=== PATIENT | male | born 1965 | race African-American/Black ===

== ENCOUNTER 2017-12-02 04:36 | Observation (INO) ==
[2017-12-02] MEDS ORDERED: MORPHINE 4 MG/1 ML VIAL IV STA (05:07)
[2017-12-02] MEDS ORDERED: SODIUM CHLORIDE 0.9% 1,000 ML IV STA (05:07)
[2017-12-02] MEDS ORDERED: ONDANSETRON 4 MG/2 ML VIAL IV STA (05:07)
[2017-12-02] MEDS ORDERED: ONDANSETRON 4 MG/2 ML VIAL ONE (05:14)
[2017-12-02] MEDS ORDERED: MORPHINE 10 MG/1 ML VIAL ONE (05:15)
[2017-12-02 05:27] LABS: Basophils % 0.2 % (0.0-0.8); Eosinophils # 0.1 10*3/uL (0.0-0.87); Eosinophils % 0.5 % (0.00-10.9); Hematocrit 31.8 VOL% (42.0-52.0); Hemoglobin 10.5 GM/DL (14.0-18.0); Immature Granulocytes % 0.9 %; Immature Granulocytes Absolute 0.11 #; Lymphocytes # 1.8 10*3/uL (1.4-4.0); Mean Corpuscular Hemoglobin 30 PG (27-34); Mean Corpuscular Volume 89.6 FL (87-102); Mean Platelet Volume 10.2 FL (9.6-12.0); Monocytes # 1.1 10*3/uL (0.11-0.8); Monocytes % 8.2 % (1.7-12.7); Neutrophils # 9.8 10*3/uL (1.4-7.4); Neutrophils % 76.2 % (38.7-73.9); Platelet Count 273 T/CUMM (130-400); Red Blood Count 3.55 MC/CUMM (3.8-5.5); Red Cell Distribution Width 13.5 % (9.3-17.3); White Blood Count 12.9 T/CUMM (4-12)
[2017-12-02 05:47] LABS: Albumin 3.3 G/DL (3.4-5.0); Bilirubin,Total 0.7 MG/DL (0.2-1.0); Calcium 9.1 MG/DL (8.5-10.1); Osmolality,Calculated 282.4 MOS/KG (273-304); Potassium 4.1 MMOL/L (3.5-5.1)
[2017-12-02] MEDS ORDERED: HYDROmorphone 2 MG/1 ML VIAL IV STA (05:49)
[2017-12-02] MEDS ORDERED: ONDANSETRON 4 MG/2 ML VIAL IV PRN (05:49)
[2017-12-02] MEDS ORDERED: HYDROmorphone 2 MG/1 ML VIAL ONE (05:57)
[2017-12-02 05:59] LABS: Lactic Acid 1.8 MMOL/L (0.4-2.0)
[2017-12-02] MEDS ORDERED: LABETALOL 100 MG/20 ML VIAL IV STA (06:24)
[2017-12-02] MEDS ORDERED: LABETALOL 20 MG/4 ML SYRINGE IV ONE (06:25)
[2017-12-02] MEDS: DEXTROSE 5% LACTATED RINGERS 1,000 ML IV SCH ×3 (07:05→21:26)
[2017-12-02] MEDS ORDERED: PANTOPRAZOLE 40 MG TABLET PO ONE (08:52)
[2017-12-02] MEDS: PANTOPRAZOLE 40 MG TABLET PO SCH (09:04)
[2017-12-02] MEDS ORDERED: VANCOMYCIN INJ 2,250 MG in SODIUM CHLORIDE 0.9% 500 ML IV ONE (10:30)
[2017-12-02] MEDS: HYDROmorphone 2 MG/1 ML VIAL IV PRN ×2 (12:00→21:26)
[2017-12-02] MEDS ORDERED: SUGAMMADEX 200 MG/2 ML VIAL IV ONE (13:19)
[2017-12-02] MEDS ORDERED: MORPHINE 4 MG/1 ML VIAL IV PRN (13:31)
[2017-12-02] MEDS ORDERED: PROPOFOL 200 MG/20 ML VIAL IV ONE (13:59)
[2017-12-02] MEDS ORDERED: SEVOFLURANE 1 UNIT/15 MINUTE INH ONE (13:59)
[2017-12-02] MEDS ORDERED: fentaNYL 100 MCG/2 ML VIAL ONE (13:59)
[2017-12-02] MEDS ORDERED: ROCURONIUM 100 MG/10 ML VIAL IV ONE (14:00)
[2017-12-02] MEDS ORDERED: SUCCINYLCHOLINE 200 MG/10 ML VIAL ONE ×2 (14:00)
[2017-12-02] MEDS ORDERED: ePHEDrine 50 MG/ML AMP ONE (14:00)
[2017-12-02 16:32] LABS: Hematocrit 27.2 VOL% (42.0-52.0); Hemoglobin 8.6 GM/DL (14.0-18.0)
[2017-12-02 22:01] LABS: Hemoglobin 8.2 GM/DL (14.0-18.0)
[2017-12-03 06:26] LABS: Hematocrit 24.3 VOL% (42.0-52.0); Hemoglobin 7.7 GM/DL (14.0-18.0)
[2017-12-03] MEDS: PANTOPRAZOLE 40 MG TABLET PO SCH (09:08)
[2017-12-03 12:38] LABS: Hemoglobin 8.2 GM/DL (14.0-18.0)
[2017-12-03 12:46] VITALS: BP 120/70
== END 2017-12-03 15:07 | disposition home or self-care (01) ==
LOC: N.ED 04:36 → N.EDINP 05:49 → INTOOBSV 05:49 → N.3E 08:45
PROVIDERS: ADMIT Surgery; ATTEND Surgery

== ENCOUNTER 2020-06-06 11:14 | Observation (INO) ==
[2020-06-06] MEDS ORDERED: SODIUM CHLORIDE 0.9% 1,000 ML IV STA (12:25)
[2020-06-06 13:03] LABS: Basophils % 0.3 % (0.0-0.8); Eosinophils # 0.1 10*3/uL (0.0-0.87); Eosinophils % 1.8 % (0.00-10.9); Hematocrit 30.8 VOL% (42.0-52.0); Hemoglobin 10.1 GM/DL (14.0-18.0); Immature Granulocytes % 0.6 %; Immature Granulocytes Absolute 0.04 #; Lymphocytes # 1.7 10*3/uL (1.4-4.0); Lymphocytes % 25.6 % (21.2-54.2); Mean Corpuscular HGB Conc 32.8 GM/DL (32-36); Mean Corpuscular Volume 90.3 FL (87-102); Mean Platelet Volume 11.1 FL (9.6-12.0); Monocytes % 11.2 % (1.7-12.7); Neutrophils % 60.5 % (38.7-73.9); Platelet Count 143 T/CUMM (130-400); Red Blood Count 3.41 MC/CUMM (3.8-5.5); Red Cell Distribution Width 14.6 % (9.3-17.3); White Blood Count 6.8 T/CUMM (4-12)
[2020-06-06 13:26] LABS: Albumin 3.2 G/DL (3.4-5.0); Bilirubin,Total 0.8 MG/DL (0.2-1.0); Calcium 9.5 MG/DL (8.5-10.1); Osmolality,Calculated 290.8 MOS/KG (273-304); Total Protein 6.6 G/DL (6.4-8.3)
[2020-06-06] MEDS ORDERED: ACETAMINOPHEN 325 MG TABLET PO PRN (14:20)
[2020-06-06] MEDS ORDERED: ONDANSETRON 4 MG/2 ML VIAL IV PRN (14:20)
[2020-06-06] MEDS ORDERED: DEXTROSE 50% 25 GM/50 ML VIAL IV PRN (14:20)
[2020-06-06] MEDS ORDERED: MORPHINE 4 MG/1 ML VIAL IV PRN (14:20)
[2020-06-06] MEDS ORDERED: GLUCAGON 1 MG VIAL IM PRN (14:20)
[2020-06-06 14:33] LABS: Ovalocytes Few
[2020-06-06 14:34] LABS: Platelet Estimate Adequate; Polychromasia Slight
[2020-06-06] MEDS: INSULIN REGULAR 100 UNIT/ML SUBCUT SCH ×2 (17:25→22:03)
[2020-06-06] MEDS: SODIUM CHLORIDE 0.9% 1,000 ML IV SCH (17:27)
[2020-06-06 18:06] LABS: Hematocrit 29.6 VOL% (42.0-52.0); Hemoglobin 9.8 GM/DL (14.0-18.0)
[2020-06-06] MEDS ORDERED: POLYETHYLENE GLYCOL POWDER 255 GM BOTTLE PO ONE (20:10)
[2020-06-06] MEDS: BISACODYL 5 MG TABLET PO SCH (20:47)
[2020-06-07 00:35] LABS: Hematocrit 28.6 VOL% (42.0-52.0); Hemoglobin 9.4 GM/DL (14.0-18.0)
[2020-06-07 00:57] LABS: Risk Ratio 2.25; VLDL CHOLESTEROL 19.6 MG/DL
[2020-06-07] MEDS: MAGNESIUM CITRATE 300 ML BOTTLE PO ONE ×2 (01:02→03:34)
[2020-06-07] MEDS: BISACODYL 5 MG TABLET PO SCH ×2 (03:32→11:33)
[2020-06-07] MEDS: SODIUM CHLORIDE 0.9% 1,000 ML IV SCH ×3 (03:44→16:21)
[2020-06-07] MEDS ORDERED: LACTATED RINGERS 1,000 ML IV SCH (07:00)
[2020-06-07] MEDS: INSULIN REGULAR 100 UNIT/ML SUBCUT SCH ×4 (07:10→22:12)
[2020-06-07] MEDS ORDERED: propofoL 200 MG/20 ML VIAL IV ONE (09:00)
[2020-06-07] MEDS ORDERED: LIDOCAINE 2% 5 ML VIAL ONE (09:00)
[2020-06-07 10:20] LABS: Hematocrit 29.7 VOL% (42.0-52.0); Hemoglobin 9.7 GM/DL (14.0-18.0)
[2020-06-07] MEDS ORDERED: EPINEPHrine 1 MG/ML VIAL ONE (12:46)
[2020-06-07 16:22] LABS: Hematocrit 31.6 VOL% (42.0-52.0); Hemoglobin 10.5 GM/DL (14.0-18.0)
[2020-06-08 01:12] LABS: Hematocrit 28.3 VOL% (42.0-52.0); Hemoglobin 9.4 GM/DL (14.0-18.0)
[2020-06-08 05:24] LABS: Hematocrit 29.4 VOL% (42.0-52.0); Hemoglobin 9.8 GM/DL (14.0-18.0)
[2020-06-08 05:26] LABS: Basophils % 0.3 % (0.0-0.8); Eosinophils # 0.1 10*3/uL (0.0-0.87); Eosinophils % 2.3 % (0.00-10.9); Hematocrit 29.3 VOL% (42.0-52.0); Hemoglobin 9.6 GM/DL (14.0-18.0); Immature Granulocytes % 0.5 %; Immature Granulocytes Absolute 0.03 #; Lymphocytes # 1.4 10*3/uL (1.4-4.0); Lymphocytes % 24.8 % (21.2-54.2); Mean Corpuscular HGB Conc 32.8 GM/DL (32-36); Mean Corpuscular Volume 89.1 FL (87-102); Mean Platelet Volume 11.3 FL (9.6-12.0); Monocytes % 12.1 % (1.7-12.7); Platelet Count 148 T/CUMM (130-400); Red Blood Count 3.29 MC/CUMM (3.8-5.5); Red Cell Distribution Width 14.1 % (9.3-17.3); White Blood Count 5.7 T/CUMM (4-12)
[2020-06-08 07:45] VITALS: BP 130/66
[2020-06-08] MEDS: INSULIN REGULAR 100 UNIT/ML SUBCUT SCH (08:23)
== END 2020-06-08 10:00 | disposition home or self-care (01) ==
LOC: N.EDINP 11:14 → N.ED 11:14 → SUATTDRO 14:20 → N.4E 16:45
PROVIDERS: ADMIT Internal Medicine; ATTEND Internal Medicine

== ENCOUNTER 2021-03-01 11:05 | Inpatient (IN) ==
[2021-03-01] MEDS ORDERED: SODIUM CHLORIDE 0.9% 1,000 ML IV STA (13:16)
[2021-03-01] MEDS ORDERED: PANTOPRAZOLE INJ 80 MG in SODIUM CHLORIDE 0.9% 100 ML IV STA (13:16)
[2021-03-01] MEDS ORDERED: PANTOPRAZOLE INJ 200 MG in SODIUM CHLORIDE 0.9% 250 ML IV SCH (13:30)
[2021-03-01] MEDS ORDERED: PANTOPRAZOLE 40 MG VIAL IV ONE (13:48)
[2021-03-01 13:53] LABS: Basophils % 0.1 % (0.0-0.8); Eosinophils # 0.1 10*3/uL (0.0-0.87); Eosinophils % 0.7 % (0.00-10.9); Hematocrit 24.8 VOL% (42.0-52.0); Hemoglobin 7.9 GM/DL (14.0-18.0); Immature Granulocytes % 0.5 %; Immature Granulocytes Absolute 0.04 #; Lymphocytes # 1.4 10*3/uL (1.4-4.0); Lymphocytes % 16.3 % (21.2-54.2); Mean Corpuscular HGB Conc 31.9 GM/DL (32-36); Mean Corpuscular Volume 90.8 FL (87-102); Mean Platelet Volume 11.6 FL (9.6-12.0); Monocytes % 7.2 % (1.7-12.7); Neutrophils % 75.2 % (38.7-73.9); Platelet Count 130 T/CUMM (130-400); Red Blood Count 2.73 MC/CUMM (3.8-5.5); Red Cell Distribution Width 15.3 % (9.3-17.3); White Blood Count 8.5 T/CUMM (4-12)
[2021-03-01 14:08] LABS: Alanine Aminotransferase 19 U/L (16-61); Alkaline Phosphatase 35 U/L (45-117); Aspartate Amino Transferase 15 U/L (0-37); Bilirubin,Total < 0.39 MG/DL (0.20-1.00); Blood Urea Nitrogen 61 MG/DL (7-18); Calcium 9.3 MG/DL (8.5-10.1); Carbon Dioxide 26 MMOL/L (21-32); Estimated Glom Filtration Rate 133 ML/MIN; Glucose 127 MG/DL (74-106); Osmolality,Calculated 304.8 MOS/KG (273-304); Potassium 4.1 MMOL/L (3.5-5.1); Sodium 144 MMOL/L (136-145); Total Protein 5.7 G/DL (6.4-8.2)
[2021-03-01 14:15] LABS: PT Patient Result 11.2 SECS (10.5-12.0)
[2021-03-01] MEDS ORDERED: ALBUTEROL 2.5 MG/3 ML NEB RESP TX PRN (15:20)
[2021-03-01] MEDS ORDERED: ZALEPLON 5 MG CAPSULE PO PRN (15:20)
[2021-03-01] MEDS ORDERED: ONDANSETRON 4 MG/2 ML VIAL IV PRN (15:20)
[2021-03-01] MEDS ORDERED: DEXTROSE 50% 25 GM/50 ML VIAL IV PRN (15:24)
[2021-03-01] MEDS ORDERED: GLUCAGON 1 MG VIAL IM PRN (15:24)
[2021-03-01] MEDS: LACTATED RINGERS 1,000 ML IV SCH (16:00)
[2021-03-01] MEDS: INSULIN LISPRO 100 UNIT/ML SUBCUT SCH ×2 (18:27→23:40)
[2021-03-01 19:30] LABS: Basophils % 0.1 % (0.0-0.8); Eosinophils % 0.3 % (0.00-10.9); Hematocrit 24.4 VOL% (42.0-52.0); Hemoglobin 7.7 GM/DL (14.0-18.0); Immature Granulocytes % 0.5 %; Immature Granulocytes Absolute 0.05 #; Lymphocytes # 2.2 10*3/uL (1.4-4.0); Lymphocytes % 22.6 % (21.2-54.2); Mean Corpuscular HGB Conc 31.6 GM/DL (32-36); Mean Corpuscular Volume 91.4 FL (87-102); Mean Platelet Volume 10.5 FL (9.6-12.0); Neutrophils % 67.5 % (38.7-73.9); Platelet Count 122 T/CUMM (130-400); Red Blood Count 2.67 MC/CUMM (3.8-5.5); Red Cell Distribution Width 15.4 % (9.3-17.3); White Blood Count 9.8 T/CUMM (4-12)
[2021-03-01 21:51] LABS: Eosinophils # 0.1 10*3/uL (0.0-0.87); Eosinophils % 0.9 % (0.00-10.9); Hematocrit 23.6 VOL% (42.0-52.0); Hemoglobin 7.3 GM/DL (14.0-18.0); Immature Granulocytes % 0.3 %; Immature Granulocytes Absolute 0.03 #; Lymphocytes # 2.3 10*3/uL (1.4-4.0); Lymphocytes % 25.4 % (21.2-54.2); Mean Corpuscular HGB Conc 30.9 GM/DL (32-36); Mean Corpuscular Volume 91.5 FL (87-102); Mean Platelet Volume 11.5 FL (9.6-12.0); Neutrophils % 63.4 % (38.7-73.9); Platelet Count 118 T/CUMM (130-400); Red Blood Count 2.58 MC/CUMM (3.8-5.5); Red Cell Distribution Width 15.5 % (9.3-17.3); White Blood Count 8.9 T/CUMM (4-12)
[2021-03-02] MEDS: LACTATED RINGERS 1,000 ML IV SCH ×2 (05:17→11:56)
[2021-03-02] MEDS: INSULIN LISPRO 100 UNIT/ML SUBCUT SCH ×3 (05:42→17:37)
[2021-03-02 05:58] LABS: Eosinophils # 0.1 10*3/uL (0.0-0.87); Eosinophils % 1.9 % (0.00-10.9); Hematocrit 20.4 VOL% (42.0-52.0); Hemoglobin 6.6 GM/DL (14.0-18.0); Immature Granulocytes % 0.3 %; Immature Granulocytes Absolute 0.02 #; Lymphocytes # 1.9 10*3/uL (1.4-4.0); Lymphocytes % 29.9 % (21.2-54.2); Mean Corpuscular HGB Conc 32.4 GM/DL (32-36); Mean Corpuscular Volume 89.5 FL (87-102); Mean Platelet Volume 12.1 FL (9.6-12.0); Monocytes % 11.3 % (1.7-12.7); Neutrophils % 56.6 % (38.7-73.9); Platelet Count 115 T/CUMM (130-400); Red Blood Count 2.28 MC/CUMM (3.8-5.5); Red Cell Distribution Width 15.5 % (9.3-17.3); White Blood Count 6.3 T/CUMM (4-12)
[2021-03-02] MEDS ORDERED: SODIUM CHLORIDE 0.9% 1,000 ML IV PRN (06:15)
[2021-03-02 06:34] LABS: Albumin 2.7 G/DL (3.4-5.0); Bilirubin,Total 0.4 MG/DL (0.20-1.00); Calcium 8.6 MG/DL (8.5-10.1); Osmolality,Calculated 297.7 MOS/KG (273-304); Potassium 3.5 MMOL/L (3.5-5.1); Total Protein 5.3 G/DL (6.4-8.2)
[2021-03-02 08:49] LABS: Basophils % 0.2 % (0.0-0.8); Eosinophils # 0.1 10*3/uL (0.0-0.87); Eosinophils % 2.1 % (0.00-10.9); Hematocrit 20.7 VOL% (42.0-52.0); Hemoglobin 6.7 GM/DL (14.0-18.0); Immature Granulocytes % 0.5 %; Immature Granulocytes Absolute 0.03 #; Lymphocytes # 1.6 10*3/uL (1.4-4.0); Lymphocytes % 27.6 % (21.2-54.2); Mean Corpuscular HGB Conc 32.4 GM/DL (32-36); Mean Corpuscular Volume 89.6 FL (87-102); Mean Platelet Volume 10.1 FL (9.6-12.0); Monocytes % 11.4 % (1.7-12.7); Neutrophils % 58.2 % (38.7-73.9); Platelet Count 100 T/CUMM (130-400); Red Blood Count 2.31 MC/CUMM (3.8-5.5); Red Cell Distribution Width 15.5 % (9.3-17.3); White Blood Count 5.7 T/CUMM (4-12)
[2021-03-02] MEDS: PANTOPRAZOLE 40 MG VIAL IV SCH ×2 (12:24→20:56)
[2021-03-02 14:28] LABS: Hematocrit 24.3 VOL% (42.0-52.0); Hemoglobin 7.7 GM/DL (14.0-18.0)
[2021-03-03] MEDS: INSULIN LISPRO 100 UNIT/ML SUBCUT SCH ×4 (01:10→18:00)
[2021-03-03 05:06] LABS: Basophils % 0.2 % (0.0-0.8); Eosinophils # 0.2 10*3/uL (0.0-0.87); Eosinophils % 3.3 % (0.00-10.9); Hematocrit 22.5 VOL% (42.0-52.0); Hemoglobin 7.3 GM/DL (14.0-18.0); Immature Granulocytes % 0.4 %; Immature Granulocytes Absolute 0.02 #; Lymphocytes # 1.7 10*3/uL (1.4-4.0); Lymphocytes % 30.5 % (21.2-54.2); Mean Corpuscular HGB Conc 32.4 GM/DL (32-36); Mean Corpuscular Volume 90.4 FL (87-102); Mean Platelet Volume 11.4 FL (9.6-12.0); Neutrophils % 54.6 % (38.7-73.9); Platelet Count 104 T/CUMM (130-400); Red Blood Count 2.49 MC/CUMM (3.8-5.5); White Blood Count 5.4 T/CUMM (4-12)
[2021-03-03 05:28] LABS: Hypochromasia 1+; Microcytosis 1+; Platelet Estimate Decreased
[2021-03-03 05:29] LABS: Calcium 8.5 MG/DL (8.5-10.1); Potassium 3.5 MMOL/L (3.5-5.1)
[2021-03-03] MEDS: LACTATED RINGERS 1,000 ML IV SCH ×2 (07:12→18:30)
[2021-03-03] MEDS ORDERED: LACTATED RINGERS 1,000 ML IV SCH (08:00)
[2021-03-03] MEDS ORDERED: propofoL 200 MG/20 ML VIAL IV ONE (08:16)
[2021-03-03] MEDS ORDERED: LIDOCAINE 2% 5 ML VIAL ONE (08:16)
[2021-03-03] MEDS ORDERED: LACTATED RINGERS 1,000 ML IV ONE (08:37)
[2021-03-03] MEDS: PANTOPRAZOLE 40 MG VIAL IV SCH ×2 (10:31→20:23)
[2021-03-04] MEDS: INSULIN LISPRO 100 UNIT/ML SUBCUT SCH ×2 (01:37→06:47)
[2021-03-04 05:56] LABS: Basophils % 0.2 % (0.0-0.8); Eosinophils # 0.2 10*3/uL (0.0-0.87); Hematocrit 23.8 VOL% (42.0-52.0); Hemoglobin 7.8 GM/DL (14.0-18.0); Immature Granulocytes % 0.4 %; Immature Granulocytes Absolute 0.02 #; Lymphocytes # 1.7 10*3/uL (1.4-4.0); Lymphocytes % 31.1 % (21.2-54.2); Mean Corpuscular HGB Conc 32.8 GM/DL (32-36); Mean Corpuscular Volume 89.8 FL (87-102); Mean Platelet Volume 11.2 FL (9.6-12.0); Monocytes % 10.4 % (1.7-12.7); NRBC # 0.02 10*3/uL; Neutrophils % 54.9 % (38.7-73.9); Platelet Count 134 T/CUMM (130-400); Red Blood Count 2.65 MC/CUMM (3.8-5.5); Red Cell Distribution Width 15.6 % (9.3-17.3); White Blood Count 5.3 T/CUMM (4-12)
[2021-03-04 06:19] LABS: Hypochromasia 1+; Platelet Estimate Normal
[2021-03-04 06:37] LABS: Calcium 8.7 MG/DL (8.5-10.1); Osmolality,Calculated 286.7 MOS/KG (273-304); Potassium 3.7 MMOL/L (3.5-5.1)
[2021-03-04] MEDS ORDERED: SODIUM CHLORIDE 0.9% 1,000 ML IV PRN (06:43)
[2021-03-04] MEDS ORDERED: FUROSEMIDE 20 MG/2 ML VIAL IV PRN (06:43)
[2021-03-04] MEDS ORDERED: PANTOPRAZOLE 40 MG TABLET PO SCH (09:00)
[2021-03-04 11:21] VITALS: BP 131/83
== END 2021-03-04 12:54 | disposition home or self-care (01) | DRG 378 ==
LOC: N.ED 11:05 → N.EDINP 15:12 → SUATTDRO 15:12 → N.ICU 17:44 → N.5E 03-02 12:41
PROVIDERS: ADMIT Internal Medicine; ATTEND Internal Medicine

== ENCOUNTER 2022-03-22 00:07 | Inpatient (IN) ==
[2022-03-22] MEDS ORDERED: GLUCAGON 1 MG VIAL IM PRN (02:50)
[2022-03-22] MEDS ORDERED: ACETAMINOPHEN 325 MG TABLET PO PRN (02:53)
[2022-03-22] MEDS ORDERED: PROMETHAZINE 25 MG/1 ML VIAL IM PRN (02:53)
[2022-03-22] MEDS ORDERED: ONDANSETRON 4 MG/2 ML VIAL IV PRN (02:53)
[2022-03-22] MEDS ORDERED: DEXTROSE 10% 250 ML BAG IV PRN (03:04)
[2022-03-22 03:34] LABS: Basophils % 0.2 % (0.0-0.8); Hematocrit 32.5 VOL% (42.0-52.0); Hemoglobin 10.7 GM/DL (14.0-18.0); Immature Granulocytes % 0.4 %; Immature Granulocytes Absolute 0.04 #; Lymphocytes % 11.1 % (21.2-54.2); Mean Corpuscular HGB Conc 32.9 GM/DL (32-36); Mean Corpuscular Volume 89.8 FL (87-102); Mean Platelet Volume 11.1 FL (9.6-12.0); Monocytes # 0.7 10*3/uL (0.11-0.8); Monocytes % 7.2 % (1.7-12.7); Neutrophils % 81.1 % (38.7-73.9); Platelet Count 127 T/CUMM (130-400); Red Blood Count 3.62 MC/CUMM (3.8-5.5); Red Cell Distribution Width 14.2 % (9.3-17.3); White Blood Count 9.2 T/CUMM (4-12)
[2022-03-22 04:05] LABS: Albumin 3.1 G/DL (3.4-5.0); Bilirubin,Total 0.5 MG/DL (0.20-1.00); Calcium 9.1 MG/DL (8.5-10.1); Osmolality,Calculated 289.8 MOS/KG (273-304); Potassium 3.3 MMOL/L (3.5-5.1); Total Protein 6.6 G/DL (6.4-8.2)
[2022-03-22] MEDS ORDERED: MAGNESIUM SULF RIDER 4 GM/100 ML PREMIX IV PRN (04:09)
[2022-03-22] MEDS: LACTATED RINGERS 1,000 ML IV SCH ×2 (05:01→15:18)
[2022-03-22] MEDS: PANTOPRAZOLE 40 MG VIAL IV SCH ×3 (05:01→22:05)
[2022-03-22] MEDS: LEVOTHYROXINE 100 MCG TABLET PO SCH (05:29)
[2022-03-22 06:22] LABS: PT Patient Result 11.4 SECS (10.1-12.1)
[2022-03-22 07:40] LABS: Hematocrit 32.9 VOL% (42.0-52.0); Hemoglobin 10.5 GM/DL (14.0-18.0)
[2022-03-22 09:34] LABS: Hematocrit 32.2 VOL% (42.0-52.0); Hemoglobin 10.4 GM/DL (14.0-18.0)
[2022-03-22] MEDS: carvediloL 25 MG TABLET PO SCH ×2 (13:27→20:11)
[2022-03-22] MEDS: POLYETHYLENE GLYCOL POWDER 17 GM PACK PO SCH ×3 (13:28→20:11)
[2022-03-22] MEDS: POTASSIUM CHLORIDE 20 MEQ TABLET PO SCH ×2 (13:28→20:11)
[2022-03-22] MEDS: GABAPENTIN 300 MG CAPSULE PO SCH ×2 (13:28→20:11)
[2022-03-22] MEDS: hydroCHLOROthiazide 25 MG TABLET PO SCH (13:28)
[2022-03-22] MEDS: amLODIPine 10 MG TABLET PO SCH (13:28)
[2022-03-22] MEDS: lisinopriL 20 MG TABLET PO SCH (13:29)
[2022-03-22 14:00] LABS: Hematocrit 28.6 VOL% (42.0-52.0); Hemoglobin 9.3 GM/DL (14.0-18.0)
[2022-03-22 19:39] LABS: Hematocrit 26.5 VOL% (42.0-52.0); Hemoglobin 8.6 GM/DL (14.0-18.0)
[2022-03-22] MEDS: ROSUVASTATIN 20 MG TABLET PO SCH (20:11)
[2022-03-22] MEDS: LATANOPROST 0.005% OPH SOLN 2.5 ML BOTTLE BOTH EYES SCH (21:17)
[2022-03-22 21:43] LABS: Hemoglobin 8.2 GM/DL (14.0-18.0)
[2022-03-23] MEDS: LACTATED RINGERS 1,000 ML IV SCH ×3 (00:36→11:34)
[2022-03-23 02:43] LABS: Basophils % 0.2 % (0.0-0.8); Eosinophils # 0.1 10*3/uL (0.0-0.87); Eosinophils % 1.5 % (0.00-10.9); Hematocrit 27.1 VOL% (42.0-52.0); Hemoglobin 8.7 GM/DL (14.0-18.0); Immature Granulocytes % 0.5 %; Immature Granulocytes Absolute 0.03 #; Lymphocytes % 32.3 % (21.2-54.2); Mean Corpuscular HGB Conc 32.1 GM/DL (32-36); Mean Corpuscular Volume 91.6 FL (87-102); Mean Platelet Volume 10.3 FL (9.6-12.0); Monocytes # 0.8 10*3/uL (0.11-0.8); Neutrophils % 52.5 % (38.7-73.9); Platelet Count 104 T/CUMM (130-400); Red Blood Count 2.96 MC/CUMM (3.8-5.5); Red Cell Distribution Width 14.6 % (9.3-17.3); White Blood Count 6.2 T/CUMM (4-12)
[2022-03-23 03:00] LABS: Calcium 8.7 MG/DL (8.5-10.1); Osmolality,Calculated 290.7 MOS/KG (273-304); Potassium 3.3 MMOL/L (3.5-5.1)
[2022-03-23] MEDS: LEVOTHYROXINE 100 MCG TABLET PO SCH (05:20)
[2022-03-23] MEDS: POTASSIUM CHLORIDE 20 MEQ TABLET PO SCH (08:34)
[2022-03-23] MEDS: hydroCHLOROthiazide 25 MG TABLET PO SCH (08:34)
[2022-03-23] MEDS: PANTOPRAZOLE 40 MG VIAL IV SCH ×2 (08:34→20:50)
[2022-03-23] MEDS: POLYETHYLENE GLYCOL POWDER 17 GM PACK PO SCH ×3 (08:34→20:40)
[2022-03-23] MEDS: lisinopriL 20 MG TABLET PO SCH (08:35)
[2022-03-23] MEDS: GABAPENTIN 300 MG CAPSULE PO SCH ×2 (08:35→20:40)
[2022-03-23] MEDS: carvediloL 25 MG TABLET PO SCH ×2 (08:36→20:40)
[2022-03-23] MEDS: POTASSIUM CHLORIDE 20 MEQ TABLET PO PRN ×2 (08:37→11:36)
[2022-03-23] MEDS: amLODIPine 10 MG TABLET PO SCH (09:17)
[2022-03-23 09:23] LABS: Hematocrit 27.8 VOL% (42.0-52.0); Hemoglobin 8.9 GM/DL (14.0-18.0)
[2022-03-23] MEDS: MAGNESIUM SULF RIDER 2 GM/50 ML PREMIX IV PRN (10:11)
[2022-03-23 14:12] LABS: Hematocrit 27.4 VOL% (42.0-52.0); Hemoglobin 8.7 GM/DL (14.0-18.0)
[2022-03-23 14:29] LABS: Potassium 3.4 MMOL/L (3.5-5.1)
[2022-03-23] MEDS: ROSUVASTATIN 20 MG TABLET PO SCH (20:40)
[2022-03-23] MEDS: LATANOPROST 0.005% OPH SOLN 2.5 ML BOTTLE BOTH EYES SCH (20:44)
[2022-03-24 05:46] LABS: Basophils % 0.2 % (0.0-0.8); Eosinophils # 0.1 10*3/uL (0.0-0.87); Eosinophils % 2.2 % (0.00-10.9); Hematocrit 24.2 VOL% (42.0-52.0); Hemoglobin 7.9 GM/DL (14.0-18.0); Immature Granulocytes % 0.6 %; Immature Granulocytes Absolute 0.03 #; Lymphocytes # 1.3 10*3/uL (1.4-4.0); Mean Corpuscular HGB Conc 32.6 GM/DL (32-36); Mean Platelet Volume 11.8 FL (9.6-12.0); Monocytes # 0.7 10*3/uL (0.11-0.8); Monocytes % 13.7 % (1.7-12.7); Neutrophils % 58.3 % (38.7-73.9); Platelet Count 118 T/CUMM (130-400); Red Blood Count 2.63 MC/CUMM (3.8-5.5); Red Cell Distribution Width 14.3 % (9.3-17.3); White Blood Count 5.1 T/CUMM (4-12)
[2022-03-24 06:14] LABS: Calcium 9.1 MG/DL (8.5-10.1); Osmolality,Calculated 288.7 MOS/KG (273-304); Potassium 3.4 MMOL/L (3.5-5.1)
[2022-03-24] MEDS ORDERED: SODIUM CHLORIDE 0.9% 1,000 ML IV PRN ×2 (06:15→19:03)
[2022-03-24] MEDS: LEVOTHYROXINE 100 MCG TABLET PO SCH (06:22)
[2022-03-24] MEDS: carvediloL 25 MG TABLET PO SCH ×2 (08:52→22:13)
[2022-03-24] MEDS: hydroCHLOROthiazide 25 MG TABLET PO SCH (08:52)
[2022-03-24] MEDS: GABAPENTIN 300 MG CAPSULE PO SCH ×2 (08:52→22:13)
[2022-03-24] MEDS: lisinopriL 20 MG TABLET PO SCH (08:52)
[2022-03-24] MEDS: amLODIPine 10 MG TABLET PO SCH (08:52)
[2022-03-24] MEDS: PANTOPRAZOLE 40 MG VIAL IV SCH ×2 (08:52→22:14)
[2022-03-24] MEDS: POLYETHYLENE GLYCOL POWDER 17 GM PACK PO SCH ×3 (08:52→22:52)
[2022-03-24] MEDS: FERROUS SULFATE 325 MG TABLET PO SCH ×2 (08:56→22:13)
[2022-03-24] MEDS: POTASSIUM CHLORIDE 20 MEQ TABLET PO PRN ×3 (15:34→22:13)
[2022-03-24] MEDS ORDERED: BISACODYL 5 MG TABLET PO ONE (18:55)
[2022-03-24] MEDS ORDERED: POLYETHYLENE GLYCOL POWDER 255 GM BOTTLE PO ONE (19:00)
[2022-03-24 21:04] LABS: Hematocrit 28.1 VOL% (42.0-52.0); Hemoglobin 9.1 GM/DL (14.0-18.0)
[2022-03-24] MEDS: BISACODYL 5 MG TABLET PO SCH (22:12)
[2022-03-24] MEDS: ROSUVASTATIN 20 MG TABLET PO SCH (22:13)
[2022-03-24] MEDS: LATANOPROST 0.005% OPH SOLN 2.5 ML BOTTLE BOTH EYES SCH (22:13)
[2022-03-25] MEDS: BISACODYL 5 MG TABLET PO SCH ×3 (06:57→21:41)
[2022-03-25] MEDS: LEVOTHYROXINE 100 MCG TABLET PO SCH (06:57)
[2022-03-25] MEDS: LACTATED RINGERS 1,000 ML IV SCH (07:39)
[2022-03-25] MEDS ORDERED: propofoL 200 MG/20 ML VIAL IV ONE ×2 (08:43→08:58)
[2022-03-25] MEDS ORDERED: LIDOCAINE 2% 5 ML VIAL ONE (08:43)
[2022-03-25 08:54] LABS: Basophils % 0.2 % (0.0-0.8); Eosinophils # 0.2 10*3/uL (0.0-0.87); Eosinophils % 2.4 % (0.00-10.9); Hematocrit 28.8 VOL% (42.0-52.0); Hemoglobin 9.5 GM/DL (14.0-18.0); Immature Granulocytes % 0.5 %; Immature Granulocytes Absolute 0.03 #; Lymphocytes # 1.5 10*3/uL (1.4-4.0); Lymphocytes % 23.3 % (21.2-54.2); Mean Corpuscular Volume 90.9 FL (87-102); Mean Platelet Volume 11.7 FL (9.6-12.0); Monocytes # 0.9 10*3/uL (0.11-0.8); Monocytes % 13.4 % (1.7-12.7); NRBC # 0.02 10*3/uL; Neutrophils % 60.2 % (38.7-73.9); Platelet Count 123 T/CUMM (130-400); Red Blood Count 3.17 MC/CUMM (3.8-5.5); White Blood Count 6.6 T/CUMM (4-12)
[2022-03-25] MEDS: hydroCHLOROthiazide 25 MG TABLET PO SCH (11:38)
[2022-03-25] MEDS: carvediloL 25 MG TABLET PO SCH ×2 (11:38→20:54)
[2022-03-25] MEDS: POTASSIUM CHLORIDE 20 MEQ TABLET PO PRN ×3 (11:38→18:29)
[2022-03-25] MEDS: FERROUS SULFATE 325 MG TABLET PO SCH ×2 (11:38→20:54)
[2022-03-25] MEDS: lisinopriL 20 MG TABLET PO SCH (11:38)
[2022-03-25] MEDS: PANTOPRAZOLE 40 MG VIAL IV SCH ×2 (11:39→20:55)
[2022-03-25] MEDS: amLODIPine 10 MG TABLET PO SCH (11:39)
[2022-03-25] MEDS: GABAPENTIN 300 MG CAPSULE PO SCH ×2 (11:39→20:54)
[2022-03-25] MEDS: POLYETHYLENE GLYCOL POWDER 17 GM PACK PO SCH ×2 (13:05→20:55)
[2022-03-25] MEDS ORDERED: traMADol 50 MG TABLET PO PRN (16:33)
[2022-03-25] MEDS: ROSUVASTATIN 20 MG TABLET PO SCH (20:54)
[2022-03-25] MEDS: LATANOPROST 0.005% OPH SOLN 2.5 ML BOTTLE BOTH EYES SCH (21:00)
[2022-03-26 00:20] LABS: Hematocrit 26.6 VOL% (42.0-52.0); Hemoglobin 8.9 GM/DL (14.0-18.0)
[2022-03-26] MEDS ORDERED: SODIUM CHLORIDE 0.9% 1,000 ML IV PRN (01:15)
[2022-03-26] MEDS ORDERED: SODIUM CHLORIDE 0.9% 1,000 ML IV ONE (05:00)
[2022-03-26] MEDS: LEVOTHYROXINE 100 MCG TABLET PO SCH (05:42)
[2022-03-26] MEDS: BISACODYL 5 MG TABLET PO SCH ×3 (05:42→23:06)
[2022-03-26 06:01] LABS: Hematocrit 27.1 VOL% (42.0-52.0); Hemoglobin 8.8 GM/DL (14.0-18.0)
[2022-03-26 06:02] LABS: Basophils % 0.2 % (0.0-0.8); Eosinophils # 0.1 10*3/uL (0.0-0.87); Eosinophils % 1.8 % (0.00-10.9); Hematocrit 27.1 VOL% (42.0-52.0); Hemoglobin 8.8 GM/DL (14.0-18.0); Immature Granulocytes % 0.9 %; Immature Granulocytes Absolute 0.06 #; Lymphocytes # 1.2 10*3/uL (1.4-4.0); Lymphocytes % 18.5 % (21.2-54.2); Mean Corpuscular HGB Conc 32.5 GM/DL (32-36); Mean Corpuscular Volume 92.2 FL (87-102); Mean Platelet Volume 10.4 FL (9.6-12.0); Monocytes # 0.9 10*3/uL (0.11-0.8); NRBC # 0.02 10*3/uL; Neutrophils % 65.6 % (38.7-73.9); Platelet Count 116 T/CUMM (130-400); Red Blood Count 2.94 MC/CUMM (3.8-5.5); Red Cell Distribution Width 14.1 % (9.3-17.3); White Blood Count 6.5 T/CUMM (4-12)
[2022-03-26] MEDS: POTASSIUM CHLORIDE RIDER 10 MEQ/100 ML PREMIX IV PRN ×3 (06:21→10:46)
[2022-03-26] MEDS: PANTOPRAZOLE 40 MG VIAL IV SCH ×2 (08:31→21:00)
[2022-03-26] MEDS ORDERED: fentaNYL 100 MCG/2 ML VIAL IV ONE (10:09)
[2022-03-26] MEDS ORDERED: DIAZEPAM 5 MG TABLET PO ONE (10:09)
[2022-03-26] MEDS ORDERED: MIDAZOLAM 2 MG/2 ML VIAL IV ONE (10:09)
[2022-03-26] MEDS: POLYETHYLENE GLYCOL POWDER 17 GM PACK PO SCH ×2 (10:11→21:01)
[2022-03-26] MEDS: hydroCHLOROthiazide 25 MG TABLET PO SCH (10:11)
[2022-03-26] MEDS: carvediloL 25 MG TABLET PO SCH ×2 (10:11→20:58)
[2022-03-26] MEDS: FERROUS SULFATE 325 MG TABLET PO SCH ×2 (10:11→20:58)
[2022-03-26] MEDS: lisinopriL 20 MG TABLET PO SCH (10:12)
[2022-03-26] MEDS: GABAPENTIN 300 MG CAPSULE PO SCH ×2 (10:12→20:58)
[2022-03-26] MEDS: amLODIPine 10 MG TABLET PO SCH (10:12)
[2022-03-26] MEDS ORDERED: SODIUM CHLORIDE 0.45% 1,000 ML IV SCH (10:30)
[2022-03-26] MEDS: LACTATED RINGERS 1,000 ML IV SCH (10:35)
[2022-03-26 10:55] LABS: INR 1.1; PT Patient Result 11.6 SECS (10.1-12.1)
[2022-03-26] MEDS ORDERED: HEPARIN/NACL 0.9% 2 UNITS/ML 6,000 UNIT/3,000 ML BAG IV ONE (13:42)
[2022-03-26] MEDS: ROSUVASTATIN 20 MG TABLET PO SCH (20:58)
[2022-03-26] MEDS: LATANOPROST 0.005% OPH SOLN 2.5 ML BOTTLE BOTH EYES SCH (22:00)
[2022-03-27 01:12] LABS: Calcium 8.9 MG/DL (8.5-10.1); Osmolality,Calculated 282.1 MOS/KG (273-304); Potassium 3.1 MMOL/L (3.5-5.1)
[2022-03-27] MEDS: POTASSIUM CHLORIDE 20 MEQ TABLET PO PRN ×3 (01:47→06:16)
[2022-03-27] MEDS: MAGNESIUM SULF RIDER 2 GM/50 ML PREMIX IV PRN (01:48)
[2022-03-27 05:42] LABS: Hematocrit 25.2 VOL% (42.0-52.0); Hemoglobin 8.1 GM/DL (14.0-18.0)
[2022-03-27] MEDS: BISACODYL 5 MG TABLET PO SCH ×3 (06:15→21:38)
[2022-03-27] MEDS: LEVOTHYROXINE 100 MCG TABLET PO SCH (06:15)
[2022-03-27] MEDS ORDERED: LACTATED RINGERS 1,000 ML IV SCH (06:45)
[2022-03-27 07:29] LABS: Hematocrit 24.7 VOL% (42.0-52.0); Hemoglobin 8.2 GM/DL (14.0-18.0)
[2022-03-27] MEDS: carvediloL 25 MG TABLET PO SCH ×2 (09:34→21:37)
[2022-03-27] MEDS: lisinopriL 20 MG TABLET PO SCH ×2 (09:34→09:48)
[2022-03-27] MEDS: POLYETHYLENE GLYCOL POWDER 17 GM PACK PO SCH ×3 (09:34→21:38)
[2022-03-27] MEDS: amLODIPine 10 MG TABLET PO SCH ×2 (09:35→09:48)
[2022-03-27] MEDS: hydroCHLOROthiazide 25 MG TABLET PO SCH ×2 (09:35→09:47)
[2022-03-27] MEDS: GABAPENTIN 300 MG CAPSULE PO SCH ×2 (09:35→21:37)
[2022-03-27] MEDS: PANTOPRAZOLE 40 MG VIAL IV SCH ×2 (09:35→21:40)
[2022-03-27] MEDS: FERROUS SULFATE 325 MG TABLET PO SCH ×2 (09:35→21:37)
[2022-03-27] MEDS ORDERED: SODIUM CHLORIDE 0.9% 1,000 ML IV PRN (10:48)
[2022-03-27 19:09] LABS: Hemoglobin 9.6 GM/DL (14.0-18.0)
[2022-03-27] MEDS: ROSUVASTATIN 20 MG TABLET PO SCH (21:37)
[2022-03-28 01:47] LABS: Basophils % 0.1 % (0.0-0.8); Eosinophils # 0.2 10*3/uL (0.0-0.87); Eosinophils % 2.5 % (0.00-10.9); Hematocrit 29.9 VOL% (42.0-52.0); Hemoglobin 9.8 GM/DL (14.0-18.0); Immature Granulocytes % 0.6 %; Immature Granulocytes Absolute 0.05 #; Lymphocytes # 1.6 10*3/uL (1.4-4.0); Lymphocytes % 18.6 % (21.2-54.2); Mean Corpuscular HGB Conc 32.8 GM/DL (32-36); Mean Corpuscular Volume 92.6 FL (87-102); Mean Platelet Volume 10.3 FL (9.6-12.0); Monocytes % 11.9 % (1.7-12.7); NRBC # 0.02 10*3/uL; Neutrophils % 66.3 % (38.7-73.9); Platelet Count 147 T/CUMM (130-400); Red Blood Count 3.23 MC/CUMM (3.8-5.5); Red Cell Distribution Width 14.5 % (9.3-17.3); White Blood Count 8.3 T/CUMM (4-12)
[2022-03-28 02:01] LABS: Calcium 9.4 MG/DL (8.5-10.1); Potassium 3.7 MMOL/L (3.5-5.1)
[2022-03-28] MEDS: LEVOTHYROXINE 100 MCG TABLET PO SCH (05:21)
[2022-03-28] MEDS: LATANOPROST 0.005% OPH SOLN 2.5 ML BOTTLE BOTH EYES SCH (05:48)
[2022-03-28] MEDS: BISACODYL 5 MG TABLET PO SCH (05:49)
[2022-03-28 07:18] LABS: Hematocrit 30.2 VOL% (42.0-52.0); Hemoglobin 9.9 GM/DL (14.0-18.0)
[2022-03-28] MEDS: POLYETHYLENE GLYCOL POWDER 17 GM PACK PO SCH (09:32)
[2022-03-28] MEDS: PANTOPRAZOLE 40 MG VIAL IV SCH (09:32)
[2022-03-28] MEDS: carvediloL 25 MG TABLET PO SCH (09:33)
[2022-03-28] MEDS: FERROUS SULFATE 325 MG TABLET PO SCH (09:33)
[2022-03-28] MEDS: GABAPENTIN 300 MG CAPSULE PO SCH (09:33)
[2022-03-28] MEDS: hydroCHLOROthiazide 25 MG TABLET PO SCH (09:33)
[2022-03-28] MEDS: lisinopriL 20 MG TABLET PO SCH (09:33)
[2022-03-28] MEDS: amLODIPine 10 MG TABLET PO SCH (09:33)
[2022-03-28 13:43] VITALS: BP 124/88
== END 2022-03-28 13:15 | disposition home or self-care (01) | DRG 907 ==
LOC: N.TELES 02:09 → SUATTDRO 02:09 → N.ICU 03-26 03:24 → N.TELES 03-27 18:11
PROVIDERS: ADMIT Internal Medicine; ATTEND Hospitalist